=== PATIENT | male | born 1980 ===

== ENCOUNTER 2020-01-06 14:42 | Observation (INO) | payer SELFPAY ==
[2020-01-06] MEDS ORDERED: Sodium Chloride 0.9% 10 ML SDV IV PRN ×2 (14:46→17:33)
[2020-01-06] MEDS ORDERED: Sodium Chloride 0.9% 10 ML Syringe FLUSH PRN (14:46)
[2020-01-06] MEDS ORDERED: Lactated Ringers 1,000 ML IV ONE (14:46)
[2020-01-06] MEDS ORDERED: Sodium Chloride 0.9% 2.5 ML Syringe FLUSH PRN (14:46)
--- NOTE | 2020-01-06 15:19 | EDM.PDOC ---
ED HPI GENERAL MEDICAL PROBLEM - General Chief Complaint: General Stated Complaint: SENT FROM THE CLINIC; NEEDING FLUIDS Time Seen by Provider: 01/06/20 14:45 Source of Information: Reports: Patient History Limitations: Reports: No Limitations - History of Present Illness INITIAL COMMENTS - FREE TEXT/NARRATIVE: HISTORY AND PHYSICAL: History of present illness: Patient is a 39-year-old male who presents to the emergency room from the clinic for rhabdomyolysis. Patient initially was seen at the clinic for fever of 100 F, increased thirst, increased urination, weakness and generalized bilateral lower leg pain. He states approximately a week ago he had been backpacking and hiking in the [place] and was concerned he had Lyme's disease. Last week he did have a tick bite to his left thigh but never had any associated rash or bull's-eye rash with it. Patient reports he has had a few days of loose stools, does seem to be better today. The clinic performed lab work and prophylactically started him on doxycycline. Due to elevated CPK he was referred tot he ER for admission to the floor. Patient denies any headache, change in vision, syncope or near syncope. Denies any chest pain, back pain, shortness of breath or cough. Denies any abdominal pain, nausea, vomiting, constipation or dysuria. Has not noted any blood in urine or stool. Patient has been eating and drinking appropriately. Review of systems: As per history of present illness and below otherwise all systems reviewed and negative. Past medical history: As per history of present illness and as reviewed below otherwise noncontributory. Surgical history: As per history of present illness and as reviewed below otherwise noncontributory. Social history: See social history for further information Family history: As per history of present illness and as reviewed below otherwise noncontributory. Physical exam: General: Well-developed and well-nourished 39-year-old male. Alert and oriented. Nontoxic-appearing and in no acute distress. HEENT: Atraumatic, normocephalic, pupils equal and reactive bilaterally, negative for conjunctival pallor or scleral icterus, mucous membranes moist, TMs normal bilaterally, throat clear, neck supple, nontender, trachea midline. No drooling or trismus noted. No meningeal signs. No hot potato voice noted. Lungs: Clear to auscultation, breath sounds equal bilaterally, chest nontender. Heart: S1S2, regular rate and rhythm without overt murmur Abdomen: Soft, nondistended, nontender. Negative for masses or hepatosplenomegaly. Negative for costovertebral tenderness. Pelvis: Stable nontender. Skin: Intact, warm, dry. No lesions or rashes noted. Extremities: Atraumatic, moves all extremities per self without difficulty or deficits, negative for cords or calf pain. Neurovascular unremarkable. Neuro: Awake, alert, oriented. Cranial nerves II through XII unremarkable. Cerebellum unremarkable. Motor and sensory unremarkable throughout. Exam nonfocal. Notes: The clinic performed a CBC, CMP, CPK, ESR, CRP and Lyme (send out). CPK is 3, 570 and elevated CPK. Patient is aware of the need for admission for IV fluids. Dr Chauhan was consulted on this patient and he is agreeable to keeping him for observation admission. Patient's vital signs remained stable. Diagnostics: [employer]: LR Impression: Rhabdomyolysis Dehydration Plan: Observation admission to [facility] Definitive disposition and diagnosis as appropriate pending reevaluation and review of above. Generalized Pain Score (Numeric/FACES): 3 - Related Data Allergies Allergy/AdvReac Type Severity Reaction Status Date / Time No Known Allergies Allergy Verified 01/06/20 14:50 Home Meds: Home Meds Doxycycline [Doxycycline Hyclate] 100 mg PO DAILY 01/06/20 [History] ED ROS GENERAL - Review of Systems Review Of Systems: Comprehensive ROS is negative, except as noted in HPI. ED EXAM, GENERAL - Physical Exam Exam: See Below (See dictation) Course - Vital Signs Last Recorded V/S: Last Vital Signs Temp 97.4 F 01/06/20 14:52 Pulse 89 01/06/20 16:20 Resp 15 01/06/20 16:20 BP 113/64 01/06/20 16:20 Pulse Ox 96 01/06/20 16:20 - Orders/Labs/Meds Orders: Active Orders 24 hr Category Date Time Status Admission Status [Patient Status] [ADT] Stat ADT 01/06/20 15:26 Active Sodium Chloride 0.9% [Normal Saline] Med 01/06/20 14:46 Active 10 ml IV ASDIRECTED PRN Sodium Chloride 0.9% [Saline Flush] Med 01/06/20 14:46 Active 10 ml FLUSH ASDIRECTED PRN Sodium Chloride 0.9% [Saline Flush] Med 01/06/20 14:46 Active 2.5 ml FLUSH ASDIRECTED PRN Peripheral IV Insertion Adult [OM.PC] Stat Oth 01/06/20 14:46 Ordered Medication Orders Sodium Chloride (Saline Flush) 10 ml FLUSH ASDIRECTED PRN PRN Reason: Keep Vein Open Last Admin: 01/06/20 15:10 Dose: 10 ml Sodium Chloride (Saline Flush) 2.5 ml FLUSH ASDIRECTED PRN PRN Reason: Keep Vein Open Last Admin: 01/06/20 15:10 Dose: 2.5 ml Sodium Chloride (Normal Saline) 10 ml IV ASDIRECTED PRN PRN Reason: IV Use Last Admin: 01/06/20 15:10 Dose: 10 ml Labs: Laboratory Tests 01/06/20 Range/Units 15:05 Urine Color YELLOW Urine Appearance CLEAR Urine pH 6.0 (5.0-8.0) Ur Specific [place] 1.015 (1.001-1.035) Urine Protein NEGATIVE (NEGATIVE) mg/dL Urine Glucose (UA) NEGATIVE (NEGATIVE) mg/dL Urine Ketones NEGATIVE (NEGATIVE) mg/dL Urine Occult Blood NEGATIVE (NEGATIVE) Urine Nitrite NEGATIVE (NEGATIVE) Urine Bilirubin NEGATIVE (NEGATIVE) Urine Urobilinogen 0.2 (<2.0) EU/dL Ur Leukocyte Esterase NEGATIVE (NEGATIVE) Meds: Medications Generic Name Dose Route Start Last Admin Trade Name Freq PRN Reason Stop Dose Admin Sodium Chloride 10 ml 01/06/20 14:46 01/06/20 15:10 Saline Flush FLUSH 10 ml ASDIRECTED PRN Administration Keep Vein Open Sodium Chloride 2.5 ml 01/06/20 14:46 01/06/20 15:10 Saline Flush FLUSH 2.5 ml ASDIRECTED PRN Administration Keep Vein Open Sodium Chloride 10 ml 01/06/20 14:46 01/06/20 15:10 Normal Saline IV 10 ml ASDIRECTED PRN Administration IV Use Discontinued Medications Generic Name Dose Route Start Last Admin Trade Name Freq PRN Reason Stop Dose Admin Lactated Ringer's 1,000 mls @ 1,000 mls/hr 01/06/20 14:46 01/06/20 15:08 Ringers, Lactated IV 01/06/20 15:45 1,000 mls/hr .BOLUS ONE Administration Departure - Departure Time of Disposition: 16:44 Disposition: Refer to Observation Clinical Impression: Rhabdomyolysis Qualifiers: Rhabdomyolysis type: non-traumatic Qualified Code(s): M62.82 - Rhabdomyolysis - Discharge Information Sepsis Event Note - Focused Exam Vital Signs: Vital Signs Temp Pulse Resp BP Pulse Ox 01/06/20 14:52 97.4 F 108 H 15 125/74 97 Date Exam was Performed: 01/06/20 Time Exam was Performed: 16:40 - My Orders Last 24 Hours: My Active Orders 01/06/20 15:26 Admission Status [Patient Status] [ADT] Stat - Assessment/Plan Last 24 Hours: My Active Orders 01/06/20 15:26 Admission Status [Patient Status] [ADT] Stat
[2020-01-06] MEDS ORDERED: Sodium Chloride 0.9% 1,000 ML IV ONE ×3 (16:58→18:00)
[2020-01-06 17:08] LABS: HEMOGLOBIN A1C 5.9 % (4.5-6.2)
--- NOTE | 2020-01-06 17:10 | PCM.HP.2 ---
H&P History of Present Illness - General Date of Service: 01/06/20 Admit Problem/Dx: Admission Diagnosis/Problem Admission Diagnosis/Problem Rhabdomyolysis Source of Information: Patient History Limitations: Reports: No Limitations - History of Present Illness Initial Comments - Free Text/Narative: 39 old male with no significant past medical history presenting today for increasing muscle aches and pains, fever, chills with polyuria/polydipsia and increased urination x3 days. 10 days prior patient was hiking in [facility] x2 days, mention on the third day working outside in [place]; had developed a sunburn. Of note patient also endorses a tick bite 10 days prior just below his left nipple. Cannot recall exact description of tick but was confident it was a tick. Patient removed tick but is not 100% sure about how long the tick was attached to his body or whether he was engorged or not. Throughout this week patient noticed feeling fatigued with increasing malaise and myalgias; fevers and chills and increasing thirst with polyuria. Denies any excess use of alcohol, no tobacco use and or illicit drugs. Patient believes that this was due to the tick bite itself. Patient was seen in the outpatient clinic this afternoon for above-mentioned complaints; elevated CPK and see reactive protein; patient was advised to proceed to ED. ED course: With above-mentioned labs patient was initiated on IV fluids for rehydration; patient endorsed feeling better but did have one loose bowel movement in the ED. Denies any chest pain, shortness of breath, coughing, sneezing, wheezing. Throughout this time has never had any episodes of hematuria but also endorses drinking gallons of fluid throughout the day. Generalized Pain Score (Numeric/FACES): 3 - Related Data Allergies/Adverse Reactions: Allergies Allergy/AdvReac Type Severity Reaction Status Date / Time No Known Allergies Allergy Verified 01/06/20 17:36 Home Medications: Home Meds Doxycycline [Doxycycline Hyclate] 100 mg PO DAILY 01/06/20 [History] Past Medical History - Past Health History Medical/Surgical History: Denies Medical/Surgical History HEENT History: Reports: None Cardiovascular History: Reports: None Respiratory History: Reports: None Gastrointestinal History: Reports: None Genitourinary History: Reports: None Musculoskeletal History: Reports: None Neurological History: Reports: None Psychiatric History: Reports: None Endocrine/Metabolic History: Reports: None Hematologic History: Reports: None Immunologic History: Reports: None Oncologic (Cancer) History: Reports: None Dermatologic History: Reports: None - Infectious Disease History Infectious Disease History: Reports: None - Past Surgical History Head Surgeries/Procedures: Reports: None Social & Family History - Family History Family Medical History: Noncontributory - Tobacco Use Smoking Status *Q: Former Smoker Used Tobacco, but Quit: Yes Month/Year Tobacco Last Used: 2010 Second Hand Smoke Exposure: No - Caffeine Use Caffeine Use: Reports: Coffee, Tea Caffeine Use Comment: Drink daily - Alcohol Use Days Per Week of Alcohol Use: 1 Number of Drinks Per Day: 0 Total Drinks Per Week: 0 Date of Last Drink: 12/23/19 Time of Last Drink: 19:00 - Recreational Drug Use Recreational Drug Use: No H&P Review of Systems - Review of Systems: Review Of Systems: See Below General: Reports: Fever, Chills, Malaise, Fatigue HEENT: Reports: No Symptoms Pulmonary: Reports: No Symptoms Cardiovascular: Reports: No Symptoms Gastrointestinal: Reports: No Symptoms, Diarrhea. Denies: Constipation Genitourinary: Reports: Frequency. Denies: Burning, Pain Musculoskeletal: Reports: Leg Pain, Muscle Pain Skin: Reports: No Symptoms Psychiatric: Denies: Confusion, Depression Neurological: Reports: Headache. Denies: Confusion, Dizziness Exam - Exam Exam: See Below - Vital Signs Vital Signs: Last Vital Signs Temp 97.4 F 01/06/20 14:52 Pulse 89 01/06/20 16:20 Resp 15 01/06/20 16:20 BP 113/64 01/06/20 16:20 Pulse Ox 96 01/06/20 16:20 Weight: 87.226 kg - Exam Quality Assessment: No: Supplemental Oxygen General: Alert, Oriented, Cooperative HEENT: EOMI, Mucosa Moist & [place], TMs Clear Neck: Supple, Trachea Midline Lungs: Clear to Auscultation, Normal Respiratory Effort Cardiovascular: Regular Rate, Regular Rhythm GI/Abdominal Exam: Soft, Non-Tender Back Exam: Normal Inspection, Full Range of Motion Extremities: Normal Inspection, Normal Range of Motion, Leg Pain (b/l lower extremity tenderness; negative deneen sign ) Skin: Warm, Dry, Intact, Other (1 mm area of erythema below left nipple ) Neurological: Cranial Nerves Intact Neuro Extensive - Mental Status: Oriented x3, Normal Mood/Affect, Normal Cognition Neuro Extensive - Motor, Sensory, Reflexes: CN II-XII Intact Psychiatric: Alert, Normal Affect, Normal Mood - Patient Data Lab Results Last 24 hrs: Laboratory Results - last 24 hr 01/06/20 Range/Units 15:05 Urine Color YELLOW Urine Appearance CLEAR Urine pH 6.0 (5.0-8.0) Ur Specific [place] 1.015 (1.001-1.035) Urine Protein NEGATIVE (NEGATIVE) mg/dL Urine Glucose (UA) NEGATIVE (NEGATIVE) mg/dL Urine Ketones NEGATIVE (NEGATIVE) mg/dL Urine Occult Blood NEGATIVE (NEGATIVE) Urine Nitrite NEGATIVE (NEGATIVE) Urine Bilirubin NEGATIVE (NEGATIVE) Urine Urobilinogen 0.2 (<2.0) EU/dL Ur Leukocyte Esterase NEGATIVE (NEGATIVE) Result Diagrams: 01/06/20 14:50 Sepsis Event Note - Evaluation Sepsis Screening Result: No Definite Risk - Focused Exam Vital Signs: Vital Signs Temp Pulse Resp BP Pulse Ox 01/06/20 16:20 89 15 113/64 96 01/06/20 15:46 90 16 110/61 94 L 01/06/20 14:52 97.4 F 108 H 15 125/74 97 Date Exam was Performed: 01/06/20 Time Exam was Performed: 17:40 Problem List Initiated/Reviewed/Updated: Yes Orders Last 24hrs: Active Orders 24 hr Category Date Time Status Admission Status [Patient Status] [ADT] Stat ADT 01/06/20 15:26 Active Activity as Tolerated [RC] .Routine Care 01/06/20 16:59 Ordered BASIC METABOLIC PANEL,BMP [CHEM] Timed Lab 01/06/20 18:00 Ordered CBC WITH AUTO DIFF [HEME] AM Lab 01/07/20 05:11 Ordered CBC WITH AUTO DIFF [HEME] AM Lab 01/08/20 05:11 Ordered CBC WITH AUTO DIFF [HEME] AM Lab 01/09/20 05:11 Ordered COMPREHENSIVE METABOLIC PN,CMP [CHEM] AM Lab 01/07/20 05:11 Ordered COMPREHENSIVE METABOLIC PN,CMP [CHEM] AM Lab 01/08/20 05:11 Ordered COMPREHENSIVE METABOLIC PN,CMP [CHEM] AM Lab 01/09/20 05:11 Ordered CREATINE KINASE,CK [CHEM] AM Lab 01/07/20 05:11 Ordered CREATINE KINASE,CK [CHEM] AM Lab 01/08/20 05:11 Ordered CREATINE KINASE,CK [CHEM] AM Lab 01/09/20 05:11 Ordered DRUG SCREEN, URINE [URCHEM] Stat Lab 01/06/20 14:58 Received GLYCOSYLATED HEMOGLOBIN,HGBA1C [CHEM] Routine Lab 01/06/20 14:50 Received Omeprazole Med 01/06/20 17:00 Ordered 20 mg PO BIDAC Sodium Chloride 0.9% [Normal Saline] Med 01/06/20 14:46 Active 10 ml IV ASDIRECTED PRN Sodium Chloride 0.9% [Normal Saline] 1,000 ml Med 01/06/20 16:58 Ordered IV STAT Sodium Chloride 0.9% [Normal Saline] 1,000 ml Med 01/06/20 16:58 Ordered IV STAT Sodium Chloride 0.9% [Saline Flush] Med 01/06/20 14:46 Active 10 ml FLUSH ASDIRECTED PRN Sodium Chloride 0.9% [Saline Flush] Med 01/06/20 14:46 Active 2.5 ml FLUSH ASDIRECTED PRN Peripheral IV Insertion Adult [OM.PC] Stat Oth 01/06/20 14:46 Ordered Code Status [Resuscitation Status] Routine Resus Stat 01/06/20 16:53 Ordered Medication Orders Sodium Chloride (Normal Saline) 1,000 mls @ 999 mls/hr IV STAT ONE Stop: 01/06/20 17:58 Sodium Chloride (Normal Saline) 1,000 mls @ 200 mls/hr IV STAT ONE Stop: 01/06/20 21:57 Omeprazole (Omeprazole) 20 mg PO BIDAC ADRIANNA Sodium Chloride (Saline Flush) 10 ml FLUSH ASDIRECTED PRN PRN Reason: Keep Vein Open Last Admin: 01/06/20 15:10 Dose: 10 ml Sodium Chloride (Saline Flush) 2.5 ml FLUSH ASDIRECTED PRN PRN Reason: Keep Vein Open Last Admin: 01/06/20 15:10 Dose: 2.5 ml Sodium Chloride (Normal Saline) 10 ml IV ASDIRECTED PRN PRN Reason: IV Use Last Admin: 01/06/20 15:10 Dose: 10 ml Assessment/Plan Comment:: Assessment: 1. Rhabdomyolysis w. elevated CPK 2. Dehydration in setting for heat exhaustion 3. Tick bite 4. Hyponatremia 5. Transaminitis 6. no PMH Plan Admit to observation. Full code. GI prophylaxis: omeprazole 20 bid. DVT prophylaxis: heparin 5000 subq 1. Rehydrate with fluids as clinical picture is more suggestive of Rhabdomyolysis in the setting of heat exhaustion/exertion; will continue at 1.5x maintenance; replete electrolytes as needed. Continue to monitor hydration status and kidney function 2. Hyponatremia: mild headache but no focal deficit and or ataxia; continue to monitor w. repeat BMP tonight; recheck labs in AM 3. Tick bite: no other rash except site of bite; pt. already took 100 mg of Doxycycline as prescribed in outpatient setting. Lyme panel already sent; will consider other tick-borne conditions (e.g: [place]/ RMSF) if clinical picture or corresponding rashes develop; no classical target rash appreciated on physical examination today. 4. Transaminitis: recheck Hepatic panel in AM; if not responding to fluids will consider hep panel; liver US etc; most likely due to dehydration; continue to monitor. 5. Polyuria/polyuria: A1c WNl, utox negative, endorses drinking "gallons of water"; continue to monitor.
[2020-01-06 17:19] LABS: BLOOD UREA NITROGEN,BUN 13 mg/dL (7.0-18.0); CHLORIDE,CL 91 mmol/L (98-107); GLUCOSE RANDOM 117 mg/dL (74-106); POTASSIUM,K 4.2 mmol/L (3.5-5.1); SODIUM,NA 124 mmol/L (136-148)
[2020-01-06] MEDS: Omeprazole 20 MG Cap.CR PO SCH (17:32)
[2020-01-06] MEDS ORDERED: Sodium Chloride 0.9% 1,000 ML IV SCH (17:45)
[2020-01-06] MEDS: Heparin Sodium 5,000 Units/ML Vial SUBCUT SCH ×2 (17:52→20:11)
[2020-01-06] MEDS ORDERED: Acetaminophen 325 MG Tab PO ONE (19:08)
[2020-01-06 21:23] LABS: BLOOD UREA NITROGEN,BUN 13 mg/dL (7.0-18.0); CARBON DIOXIDE,CO2 27.3 mmol/L (21.0-32.0); CHLORIDE,CL 100 mmol/L (98-107); GLUCOSE RANDOM 116 mg/dL (74-106); POTASSIUM,K 4.2 mmol/L (3.5-5.1); SODIUM,NA 136 mmol/L (136-148)
[2020-01-06] MEDS: Sodium Chloride 0.9% 1,000 ML IV SCH (22:52)
--- NOTE | 2020-01-06 23:31 | CR ---
INDICATION: Fever TECHNIQUE: Chest 1 view COMPARISON: None FINDINGS: Cardiovascular and mediastinum: Heart size and vasculature are normal in caliber and appearance. Lungs and pleural spaces: No pleural effusion or pneumothorax. Minimal linear atelectasis left lung base. Bones and soft tissues: No significant findings. IMPRESSION: Minimal linear atelectasis left lung base. Dictated by Cain Borjas MD @ Jan 06 2020 11:29PM Signed by Dr. Cain Borjas @ Jan 06 2020 11:30PM
[2020-01-07] MEDS ORDERED: Piperacillin/Tazobactam 4.5 GM in Sodium Chloride 0.9% 100 ML IV ONE ×2 (06:00)
[2020-01-07 06:43] LABS: BLOOD UREA NITROGEN,BUN 12 mg/dL (7.0-18.0); CARBON DIOXIDE,CO2 25.5 mmol/L (21.0-32.0); CHLORIDE,CL 102 mmol/L (98-107); GLUCOSE RANDOM 106 mg/dL (74-106); POTASSIUM,K 4.3 mmol/L (3.5-5.1); SODIUM,NA 136 mmol/L (136-148)
[2020-01-07] MEDS: Omeprazole 20 MG Cap.CR PO SCH ×2 (08:04→16:43)
[2020-01-07] MEDS ORDERED: Acetaminophen 325 MG Tab PO ONE ×2 (08:06→22:20)
[2020-01-07] MEDS: Heparin Sodium 5,000 Units/ML Vial SUBCUT SCH ×2 (08:09→22:13)
[2020-01-07] MEDS: Doxycycline 100 MG Cap PO SCH ×2 (11:39→21:54)
--- NOTE | 2020-01-07 12:48 | PCM.PN ---
<Gricelda Wayne - Last Filed: 01/07/20 12:42> - General Info Date of Service: 01/07/20 - Review of Systems General: Reports: Fever, Chills HEENT: Reports: No Symptoms Pulmonary: Reports: No Symptoms Cardiovascular: Reports: No Symptoms Gastrointestinal: Reports: No Symptoms Genitourinary: Reports: No Symptoms Musculoskeletal: Reports: No Symptoms. Denies: Neck Pain Skin: Reports: No Symptoms. Denies: Pruritis, Rash Neurological: Reports: Headache. Denies: Confusion, Dizziness, Numbness Psychiatric: Reports: No Symptoms - Patient Data Vitals - Most Recent: Last Vital Signs Temp 101.1 F H 01/07/20 08:17 Pulse 94 01/07/20 08:00 Resp 18 01/07/20 08:00 BP 114/67 01/07/20 08:00 Pulse Ox 96 01/07/20 08:00 Weight - Most Recent: 87.226 kg I&O - Last 24 Hours: Intake & Output 01/06/20 01/07/20 01/07/20 22:59 06:59 14:59 Intake Total 905 Balance 905 Lab Results Last 24 Hours: Laboratory Results - last 24 hr 01/06/20 01/06/20 01/06/20 Range/Units 14:50 14:50 14:50 WBC (4.0-11.0) K/uL RBC (4.50-5.90) M/uL Hgb (13.0-17.0) g/dL Hct (38.0-50.0) % MCV (80.0-98.0) fL MCH (27.0-32.0) pg MCHC (31.0-37.0) g/dL RDW Std Deviation (28.0-62.0) fl RDW Coeff of Uma (11.0-15.0) % Plt Count (150-400) K/uL MPV (7.40-12.00) fL Add Manual Diff Neutrophils % (Manual) (48.0-80.0) % Band Neutrophils % % Lymphocytes % (Manual) (16.0-40.0) % Monocytes % (Manual) (0.0-15.0) % Nucleated RBC % /100WBC Absolute Seg Neuts (1.4-5.7) Band Neutrophils # Lymphocytes # (Manual) (0.6-2.4) Monocytes # (Manual) (0.0-0.8) Nucleated RBCs # K/uL Lactate (0.20-2.00) mmol/L Sodium 124 L (136-148) mmol/L Potassium 4.2 (3.5-5.1) mmol/L Chloride 91 L (98-107) mmol/L Carbon Dioxide 25.0 (21.0-32.0) mmol/L BUN 13 (7.0-18.0) mg/dL Creatinine 1.1 (0.8-1.3) mg/dL Est Cr Clr Drug Dosing 85.50 mL/min Estimated GFR (MDRD) > 60.0 ml/min Glucose 117 H (74-106) mg/dL Hemoglobin A1c 5.9 (4.5-6.2) % Calcium 8.0 L (8.5-10.1) mg/dL Magnesium 1.8 (1.8-2.4) mg/dL Total Bilirubin (0.2-1.0) mg/dL AST (15-37) IU/L ALT (14-63) IU/L Alkaline Phosphatase (46-116) U/L Creatine Kinase (26-308) U/L Total Protein (6.4-8.2) g/dL Albumin (3.4-5.0) g/dL Globulin (2.6-4.0) g/dL Albumin/Globulin Ratio (0.9-1.6) Urine Color Urine Appearance Urine pH (5.0-8.0) Ur Specific [place] (1.001-1.035) Urine Protein (NEGATIVE) mg/dL Urine Glucose (UA) (NEGATIVE) mg/dL Urine Ketones (NEGATIVE) mg/dL Urine Occult Blood (NEGATIVE) Urine Nitrite (NEGATIVE) Urine Bilirubin (NEGATIVE) Urine Urobilinogen (<2.0) EU/dL Ur Leukocyte Esterase (NEGATIVE) Urine Opiates Screen (NEGATIVE) Ur Oxycodone Screen (NEGATIVE) Urine Methadone Screen (NEGATIVE) Ur Barbiturates Screen (NEGATIVE) Ur Phencyclidine Scrn (NEGATIVE) Ur Amphetamine Screen (NEGATIVE) U Methamphetamines Scrn (NEGATIVE) U Benzodiazepines Scrn (NEGATIVE) U Cocaine Metab Screen (NEGATIVE) U Marijuana (THC) Screen (NEGATIVE) SARS-CoV-2 RNA (RT-PCR) (NEGATIVE) 01/06/20 01/06/20 01/06/20 Range/Units 14:58 15:05 19:45 WBC (4.0-11.0) K/uL RBC (4.50-5.90) M/uL Hgb (13.0-17.0) g/dL Hct (38.0-50.0) % MCV (80.0-98.0) fL MCH (27.0-32.0) pg MCHC (31.0-37.0) g/dL RDW Std Deviation (28.0-62.0) fl RDW Coeff of Uma (11.0-15.0) % Plt Count (150-400) K/uL MPV (7.40-12.00) fL Add Manual Diff Neutrophils % (Manual) (48.0-80.0) % Band Neutrophils % % Lymphocytes % (Manual) (16.0-40.0) % Monocytes % (Manual) (0.0-15.0) % Nucleated RBC % /100WBC Absolute Seg Neuts (1.4-5.7) Band Neutrophils # Lymphocytes # (Manual) (0.6-2.4) Monocytes # (Manual) (0.0-0.8) Nucleated RBCs # K/uL Lactate (0.20-2.00) mmol/L Sodium (136-148) mmol/L Potassium (3.5-5.1) mmol/L Chloride (98-107) mmol/L Carbon Dioxide (21.0-32.0) mmol/L BUN (7.0-18.0) mg/dL Creatinine (0.8-1.3) mg/dL Est Cr Clr Drug Dosing mL/min Estimated GFR (MDRD) ml/min Glucose (74-106) mg/dL Hemoglobin A1c (4.5-6.2) % Calcium (8.5-10.1) mg/dL Magnesium (1.8-2.4) mg/dL Total Bilirubin (0.2-1.0) mg/dL AST (15-37) IU/L ALT (14-63) IU/L Alkaline Phosphatase (46-116) U/L Creatine Kinase (26-308) U/L Total Protein (6.4-8.2) g/dL Albumin (3.4-5.0) g/dL Globulin (2.6-4.0) g/dL Albumin/Globulin Ratio (0.9-1.6) Urine Color YELLOW Urine Appearance CLEAR Urine pH 6.0 (5.0-8.0) Ur Specific [place] 1.015 (1.001-1.035) Urine Protein NEGATIVE (NEGATIVE) mg/dL Urine Glucose (UA) NEGATIVE (NEGATIVE) mg/dL Urine Ketones NEGATIVE (NEGATIVE) mg/dL Urine Occult Blood NEGATIVE (NEGATIVE) Urine Nitrite NEGATIVE (NEGATIVE) Urine Bilirubin NEGATIVE (NEGATIVE) Urine Urobilinogen 0.2 (<2.0) EU/dL Ur Leukocyte Esterase NEGATIVE (NEGATIVE) Urine Opiates Screen NEGATIVE (NEGATIVE) Ur Oxycodone Screen NEGATIVE (NEGATIVE) Urine Methadone Screen NEGATIVE (NEGATIVE) Ur Barbiturates Screen NEGATIVE (NEGATIVE) Ur Phencyclidine Scrn NEGATIVE (NEGATIVE) Ur Amphetamine Screen NEGATIVE (NEGATIVE) U Methamphetamines Scrn NEGATIVE (NEGATIVE) U Benzodiazepines Scrn NEGATIVE (NEGATIVE) U Cocaine Metab Screen NEGATIVE (NEGATIVE) U Marijuana (THC) Screen NEGATIVE (NEGATIVE) SARS-CoV-2 RNA (RT-PCR) NEGATIVE (NEGATIVE) 01/06/20 01/06/20 01/07/20 Range/Units 21:03 22:45 06:00 WBC 1.61 L (4.0-11.0) K/uL RBC 4.87 (4.50-5.90) M/uL Hgb 14.6 (13.0-17.0) g/dL Hct 43.2 (38.0-50.0) % MCV 88.7 (80.0-98.0) fL MCH 30.0 (27.0-32.0) pg MCHC 33.8 (31.0-37.0) g/dL RDW Std Deviation 44.4 (28.0-62.0) fl RDW Coeff of Uma 14 (11.0-15.0) % Plt Count 84 L (150-400) K/uL MPV 10.80 (7.40-12.00) fL Add Manual Diff YES Neutrophils % (Manual) 48 (48.0-80.0) % Band Neutrophils % 12 % Lymphocytes % (Manual) 36 (16.0-40.0) % Monocytes % (Manual) 4 (0.0-15.0) % Nucleated RBC % 0.0 /100WBC Absolute Seg Neuts 0.8 L (1.4-5.7) Band Neutrophils # 0.2 Lymphocytes # (Manual) 0.6 (0.6-2.4) Monocytes # (Manual) 0.1 (0.0-0.8) Nucleated RBCs # 0 K/uL Lactate 0.5 (0.20-2.00) mmol/L Sodium 136 (136-148) mmol/L Potassium 4.2 (3.5-5.1) mmol/L Chloride 100 (98-107) mmol/L Carbon Dioxide 27.3 (21.0-32.0) mmol/L BUN 13 (7.0-18.0) mg/dL Creatinine 1.1 (0.8-1.3) mg/dL Est Cr Clr Drug Dosing 85.50 mL/min Estimated GFR (MDRD) > 60.0 ml/min Glucose 116 H (74-106) mg/dL Hemoglobin A1c (4.5-6.2) % Calcium 7.7 L (8.5-10.1) mg/dL Magnesium (1.8-2.4) mg/dL Total Bilirubin (0.2-1.0) mg/dL AST (15-37) IU/L ALT (14-63) IU/L Alkaline Phosphatase (46-116) U/L Creatine Kinase (26-308) U/L Total Protein (6.4-8.2) g/dL Albumin (3.4-5.0) g/dL Globulin (2.6-4.0) g/dL Albumin/Globulin Ratio (0.9-1.6) Urine Color Urine Appearance Urine pH (5.0-8.0) Ur Specific [place] (1.001-1.035) Urine Protein (NEGATIVE) mg/dL Urine Glucose (UA) (NEGATIVE) mg/dL Urine Ketones (NEGATIVE) mg/dL Urine Occult Blood (NEGATIVE) Urine Nitrite (NEGATIVE) Urine Bilirubin (NEGATIVE) Urine Urobilinogen (<2.0) EU/dL Ur Leukocyte Esterase (NEGATIVE) Urine Opiates Screen (NEGATIVE) Ur Oxycodone Screen (NEGATIVE) Urine Methadone Screen (NEGATIVE) Ur Barbiturates Screen (NEGATIVE) Ur Phencyclidine Scrn (NEGATIVE) Ur Amphetamine Screen (NEGATIVE) U Methamphetamines Scrn (NEGATIVE) U Benzodiazepines Scrn (NEGATIVE) U Cocaine Metab Screen (NEGATIVE) U Marijuana (THC) Screen (NEGATIVE) SARS-CoV-2 RNA (RT-PCR) (NEGATIVE) 01/07/20 Range/Units 06:00 WBC (4.0-11.0) K/uL RBC (4.50-5.90) M/uL Hgb (13.0-17.0) g/dL Hct (38.0-50.0) % MCV (80.0-98.0) fL MCH (27.0-32.0) pg MCHC (31.0-37.0) g/dL RDW Std Deviation (28.0-62.0) fl RDW Coeff of Uma (11.0-15.0) % Plt Count (150-400) K/uL MPV (7.40-12.00) fL Add Manual Diff Neutrophils % (Manual) (48.0-80.0) % Band Neutrophils % % Lymphocytes % (Manual) (16.0-40.0) % Monocytes % (Manual) (0.0-15.0) % Nucleated RBC % /100WBC Absolute Seg Neuts (1.4-5.7) Band Neutrophils # Lymphocytes # (Manual) (0.6-2.4) Monocytes # (Manual) (0.0-0.8) Nucleated RBCs # K/uL Lactate (0.20-2.00) mmol/L Sodium 136 (136-148) mmol/L Potassium 4.3 (3.5-5.1) mmol/L Chloride 102 (98-107) mmol/L Carbon Dioxide 25.5 (21.0-32.0) mmol/L BUN 12 (7.0-18.0) mg/dL Creatinine 1.1 (0.8-1.3) mg/dL Est Cr Clr Drug Dosing 85.50 mL/min Estimated GFR (MDRD) > 60.0 ml/min Glucose 106 (74-106) mg/dL Hemoglobin A1c (4.5-6.2) % Calcium 7.6 L (8.5-10.1) mg/dL Magnesium (1.8-2.4) mg/dL Total Bilirubin 0.3 (0.2-1.0) mg/dL AST 141 H (15-37) IU/L ALT 132 H (14-63) IU/L Alkaline Phosphatase 53 (46-116) U/L Creatine Kinase 2566 H (26-308) U/L Total Protein 6.3 L (6.4-8.2) g/dL Albumin 3.2 L (3.4-5.0) g/dL Globulin 3.1 (2.6-4.0) g/dL Albumin/Globulin Ratio 1.0 (0.9-1.6) Urine Color Urine Appearance Urine pH (5.0-8.0) Ur Specific [place] (1.001-1.035) Urine Protein (NEGATIVE) mg/dL Urine Glucose (UA) (NEGATIVE) mg/dL Urine Ketones (NEGATIVE) mg/dL Urine Occult Blood (NEGATIVE) Urine Nitrite (NEGATIVE) Urine Bilirubin (NEGATIVE) Urine Urobilinogen (<2.0) EU/dL Ur Leukocyte Esterase (NEGATIVE) Urine Opiates Screen (NEGATIVE) Ur Oxycodone Screen (NEGATIVE) Urine Methadone Screen (NEGATIVE) Ur Barbiturates Screen (NEGATIVE) Ur Phencyclidine Scrn (NEGATIVE) Ur Amphetamine Screen (NEGATIVE) U Methamphetamines Scrn (NEGATIVE) U Benzodiazepines Scrn (NEGATIVE) U Cocaine Metab Screen (NEGATIVE) U Marijuana (THC) Screen (NEGATIVE) SARS-CoV-2 RNA (RT-PCR) (NEGATIVE) Med Orders - Current: Current Medications Doxycycline Hyclate (Vibramycin) 100 mg PO BID [facility] Last Admin: 01/07/20 11:39 Dose: 100 mg Heparin Sodium (Porcine) (Heparin Sodium) 5,000 units SUBCUT BID [facility] Last Admin: 01/07/20 08:09 Dose: Not Given Sodium Chloride (Normal Saline) 1,000 mls @ 125 mls/hr IV ASDIRECTED [facility] Last Admin: 01/06/20 22:52 Dose: 125 mls/hr Piperacillin Sod/Tazobactam (Sod 3.375 gm/ Sodium Chloride) 50 mls @ 100 mls/ hr IV Q8H [facility] Vancomycin HCl 1.25 gm/ Sodium (Chloride) 250 mls @ 166.667 mls/hr IV Q8H [facility] Last Admin: 01/07/20 12:38 Dose: 166.667 mls/hr Omeprazole (Omeprazole) 20 mg PO BIDAC [facility] Last Admin: 01/07/20 08:04 Dose: 20 mg Sodium Chloride (Saline Flush) 10 ml FLUSH ASDIRECTED PRN PRN Reason: Keep Vein Open Last Admin: 01/06/20 15:10 Dose: 10 ml Sodium Chloride (Saline Flush) 2.5 ml FLUSH ASDIRECTED PRN PRN Reason: Keep Vein Open Last Admin: 01/06/20 15:10 Dose: 2.5 ml Vancomycin HCl (Pharmacy To Dose - Vancomycin) 1 dose .XX ASDIRECTED [facility] Discontinued Medications Acetaminophen (Tylenol) 325 mg PO NOW ONE Stop: 01/06/20 19:09 Last Admin: 01/06/20 20:09 Dose: 325 mg Acetaminophen (Tylenol) 650 mg PO NOW ONE Stop: 01/07/20 08:07 Last Admin: 01/07/20 08:17 Dose: 650 mg Lactated Ringer's (Ringers, Lactated) 1,000 mls @ 1,000 mls/hr IV .BOLUS ONE Stop: 01/06/20 15:45 Last Admin: 01/06/20 15:08 Dose: 1,000 mls/hr Sodium Chloride (Normal Saline) 1,000 mls @ 999 mls/hr IV STAT ONE Stop: 01/06/20 17:58 Last Admin: 01/06/20 17:11 Dose: 999 mls/hr Sodium Chloride (Normal Saline) 1,000 mls @ 200 mls/hr IV STAT ONE Stop: 01/06/20 22:59 Sodium Chloride (Normal Saline) 1,000 mls @ 200 mls/hr IV CONTINUOUS ONE Stop: 01/06/20 22:59 Sodium Chloride (Normal Saline) 1,000 mls @ 200 mls/hr IV .Q5H [facility] Last Admin: 01/06/20 18:19 Dose: 200 mls/hr Piperacillin Sod/Tazobactam (Sod 4.5 gm/ Sodium Chloride) 100 mls @ 200 mls/hr IV ONETIME ONE Stop: 01/07/20 06:29 Last Admin: 01/07/20 07:38 Dose: 200 mls/hr Sodium Chloride (Normal Saline) 10 ml IV ASDIRECTED PRN PRN Reason: IV Use Last Admin: 01/06/20 15:10 Dose: 10 ml - Exam Quality Assessment: No: Supplemental Oxygen General: Alert, Oriented, Cooperative, No Acute Distress HEENT: Pupils Equal, Pupils Reactive, EOMI Neck: Supple Lungs: Clear to Auscultation, Normal Respiratory Effort Cardiovascular: Regular Rate, Regular Rhythm GI/Abdominal Exam: Soft, Non-Tender Extremities: Normal Inspection, Non-Tender, No Pedal Edema, Normal Capillary Refill Skin: Warm, Dry, Intact Wound/Incisions: Healing Well Neurological: No New Focal Deficit, Normal Speech, Strength Equal Bilateral, Sensation Intact, Other (no obvious meningeal signs; mentating well; no neck tenderness/stiffness. negative kernigs/brudzinski. ) Psy/Mental Status: Alert, Normal Affect, Normal Mood Sepsis Event Note - Evaluation Sepsis Screening Result: Sepsis Risk - Focused Exam Vital Signs: Vital Signs Temp Temp Temp Pulse Resp BP Pulse Ox 01/07/20 08:17 101.1 F H 01/07/20 08:00 101.1 F H 94 18 114/67 96 01/07/20 04:30 102.1 F H 96 18 121/68 Date Exam was Performed: 01/07/20 Time Exam was Performed: 12:42 - Problem List Review Problem List Initiated/Reviewed/Updated: Yes - My Orders Last 24 Hours: My Active Orders 01/06/20 16:53 Code Status [Resuscitation Status] Routine 01/06/20 16:59 Activity as Tolerated [RC] .Routine 01/06/20 17:00 Omeprazole 20 mg PO BIDAC 01/06/20 17:45 Heparin Sodium 5,000 units SUBCUT BID 01/06/20 Dinner Regular Diet [DIET] 01/07/20 11:28 INFLUENZA A+B AG SCREEN [RM] Stat Isolation [COMM] Routine 01/07/20 11:30 Doxycycline [Vibramycin] 100 mg PO BID 01/08/20 05:11 CBC WITH AUTO DIFF [HEME] AM COMPREHENSIVE METABOLIC PN,CMP [CHEM] AM CREATINE KINASE,CK [CHEM] AM 01/09/20 05:11 CBC WITH AUTO DIFF [HEME] AM COMPREHENSIVE METABOLIC PN,CMP [CHEM] AM CREATINE KINASE,CK [CHEM] AM - Plan Plan:: Assessment: 1. Rhabdomyolysis w. elevated CPK 2. Neutropenia w. fever 3. Dehydration in setting of heat exhaustion 4. Tick bite 5. Hyponatremia:resolved 6. Transaminitis :improving 7. no PMH Plan Admit to observation. Full code. GI prophylaxis: omeprazole 20 bid. DVT prophylaxis: heparin 5000 subq 1. Rehydrate with fluids as clinical picture is more suggestive of Rhabdomyolysis in the setting of heat exhaustion/exertion; will continue at 1.5x maintenance; replete electrolytes as needed. Continue to monitor hydration status and kidney function Neutropenia with Fever: overnight pt. was initated on Zosyn+vancomycin; still spiking fevers in AM but endorses muscle aches and pain improving. Will check for Influenza but no obvious signs of infections appreciated on History and physical. No new rashes appreciated today; site of tick bit , 1 mm erythema ; noted and unchanged. Continue to monitor ; recheck CBC and lactate this afternoon. 2. Hyponatremia: resolved 3. Tick bite: no other rash except site of bite; pt. already took 100 mg of Doxycycline as prescribed in outpatient setting. Lyme panel already sent; will consider other tick-borne conditions (e.g: [place]/ RMSF) if clinical picture or corresponding rashes develop; no classical target rash appreciated on physical examination today. Will also order a RMSF and Anaplasma panel. Restart pt. on Doxycycline 100 mg BID 4. Transaminitis: recheck Hepatic panel in AM; if not responding to fluids will consider hep panel; liver US etc; most likely due to dehydration; continue to monitor. continue to monitor 5. Polyuria/polyuria: A1c WNl, utox negative, endorses drinking "gallons of water"; continue to monitor. A1c WNL <Vinnie Nix - Last Filed: 01/09/20 23:45> - Patient Data Vitals - Most Recent: Last Vital Signs Temp 36.8 C 01/08/20 11:00 Pulse 80 01/08/20 11:00 Resp 14 01/08/20 11:00 BP 113/65 01/08/20 11:00 Pulse Ox 97 01/08/20 11:00 Higinio Results Last 24 Hours: Microbiology 01/06/20 22:35 Aerobic Blood Culture - Preliminary Blood - Venous NO GROWTH AFTER 3 DAYS Anaerobic Blood Culture - Preliminary NO GROWTH AFTER 3 DAYS 01/06/20 22:45 Aerobic Blood Culture - Preliminary Blood - Venous - Lab Draw NO GROWTH AFTER 3 DAYS Anaerobic Blood Culture - Preliminary NO GROWTH AFTER 3 DAYS Med Orders - Current: Current Medications Discontinued Medications Acetaminophen (Tylenol) 325 mg PO NOW ONE Stop: 01/06/20 19:09 Last Admin: 01/06/20 20:09 Dose: 325 mg Acetaminophen (Tylenol) 650 mg PO NOW ONE Stop: 01/07/20 08:07 Last Admin: 01/07/20 08:17 Dose: 650 mg Acetaminophen (Tylenol) 650 mg PO Q4H ONE Stop: 01/07/20 22:21 Last Admin: 01/07/20 22:26 Dose: 650 mg Doxycycline Hyclate (Vibramycin) 100 mg PO BID [facility] Last Admin: 01/08/20 09:05 Dose: 100 mg Heparin Sodium (Porcine) (Heparin Sodium) 5,000 units SUBCUT BID [facility] Last Admin: 01/08/20 13:46 Dose: Not Given Lactated Ringer's (Ringers, Lactated) 1,000 mls @ 1,000 mls/hr IV .BOLUS ONE Stop: 01/06/20 15:45 Last Admin: 01/06/20 15:08 Dose: 1,000 mls/hr Sodium Chloride (Normal Saline) 1,000 mls @ 999 mls/hr IV STAT ONE Stop: 01/06/20 17:58 Last Admin: 01/06/20 17:11 Dose: 999 mls/hr Sodium Chloride (Normal Saline) 1,000 mls @ 200 mls/hr IV STAT ONE Stop: 01/06/20 22:59 Sodium Chloride (Normal Saline) 1,000 mls @ 200 mls/hr IV CONTINUOUS ONE Stop: 01/06/20 22:59 Sodium Chloride (Normal Saline) 1,000 mls @ 200 mls/hr IV .Q5H [facility] Last Admin: 01/06/20 18:19 Dose: 200 mls/hr Sodium Chloride (Normal Saline) 1,000 mls @ 125 mls/hr IV ASDIRECTED [facility] Last Admin: 01/08/20 04:38 Dose: 125 mls/hr Piperacillin Sod/Tazobactam (Sod 3.375 gm/ Sodium Chloride) 50 mls @ 100 mls/ hr IV Q8H [facility] Last Admin: 01/08/20 13:24 Dose: 100 mls/hr Vancomycin HCl 1.25 gm/ Sodium (Chloride) 250 mls @ 166.667 mls/hr IV Q8H [facility] Last Admin: 01/08/20 13:46 Dose: Not Given Piperacillin Sod/Tazobactam (Sod 4.5 gm/ Sodium Chloride) 100 mls @ 200 mls/hr IV ONETIME ONE Stop: 01/07/20 06:29 Last Admin: 01/07/20 07:38 Dose: 200 mls/hr Vancomycin HCl 1.5 gm/ Premix 300 mls @ 150 mls/hr IV Q8H [facility] Last Admin: 01/08/20 14:16 Dose: 150 mls/hr Omeprazole (Omeprazole) 20 mg PO BIDAC [facility] Last Admin: 01/08/20 16:28 Dose: 20 mg Sodium Chloride (Saline Flush) 10 ml FLUSH ASDIRECTED PRN PRN Reason: Keep Vein Open Last Admin: 01/06/20 15:10 Dose: 10 ml Sodium Chloride (Saline Flush) 2.5 ml FLUSH ASDIRECTED PRN PRN Reason: Keep Vein Open Last Admin: 01/06/20 15:10 Dose: 2.5 ml Sodium Chloride (Normal Saline) 10 ml IV ASDIRECTED PRN PRN Reason: IV Use Last Admin: 01/06/20 15:10 Dose: 10 ml Vancomycin HCl (Pharmacy To Dose - Vancomycin) 1 dose .XX ASDIRECTED [facility] - Problem List & Annotations (1) Tick bite of chest wall SNOMED Code(s): 66400824 Code(s): S20.369A - INSECT BITE (NONVENOMOUS) OF UNSP FRONT WALL OF THORAX, INIT; W57.XXXA - BIT/STUNG BY NONVENOM INSECT & OTH NONVENOM ARTHROPODS, INIT Status: Acute (2) Fever SNOMED Code(s): 274504560 Code(s): R50.9 - FEVER, UNSPECIFIED Status: Acute (3) Rhabdomyolysis SNOMED Code(s): 776551398 Code(s): M62.82 - RHABDOMYOLYSIS Status: Acute Qualifiers: Rhabdomyolysis type: non-traumatic Qualified Code(s): M62.82 - Rhabdomyolysis (4) Leucopenia SNOMED Code(s): 53154356, 886652936 Code(s): D72.819 - DECREASED WHITE BLOOD CELL COUNT, UNSPECIFIED Status: Acute (5) Thrombocytopenia SNOMED Code(s): 218182987 Code(s): D69.6 - THROMBOCYTOPENIA, UNSPECIFIED Status: Acute - Plan Plan:: I have seen and evaluated the patient and agree with the residents note unless specified in my note
[2020-01-07] MEDS: Piperacillin/Tazobactam 3.375 GM in Sodium Chloride 0.9% 50 ML IV SCH ×2 (14:20→21:55)
[2020-01-07] MEDS: Sodium Chloride 0.9% 1,000 ML IV SCH (18:37)
[2020-01-08] MEDS: Sodium Chloride 0.9% 1,000 ML IV SCH (04:38)
[2020-01-08] MEDS: Piperacillin/Tazobactam 3.375 GM in Sodium Chloride 0.9% 50 ML IV SCH ×2 (06:20→13:24)
[2020-01-08] MEDS: Omeprazole 20 MG Cap.CR PO SCH ×2 (06:30→16:28)
[2020-01-08 06:57] LABS: BLOOD UREA NITROGEN,BUN 12 mg/dL (7.0-18.0); CARBON DIOXIDE,CO2 28.8 mmol/L (21.0-32.0); CHLORIDE,CL 105 mmol/L (98-107); GLUCOSE RANDOM 100 mg/dL (74-106); SODIUM,NA 141 mmol/L (136-148)
[2020-01-08] MEDS: Doxycycline 100 MG Cap PO SCH (09:05)
[2020-01-08] MEDS: Heparin Sodium 5,000 Units/ML Vial SUBCUT SCH (13:46)
--- NOTE | 2020-01-08 14:33 | PCM.DCSUM1 ---
Discharge Summary - Discharge Data Discharge Date: 01/08/20 Discharge Disposition: Home, Self-Care 01 Condition: Stable - Referral to Home Health Primary Care Physician: Quinn Black MD - Discharge Plan Home Medications: Home Meds Doxycycline [Doxycycline Hyclate] 100 mg PO DAILY 01/06/20 [History] Patient Handouts: Rhabdomyolysis, Dehydration, Adult, [id number] Referrals: Gricelda Wayne MD [Resident] - 01/19/20 2:30 pm - Patient Data Vitals - Most Recent: Last Vital Signs Temp 36.8 C 01/08/20 11:00 Pulse 80 01/08/20 11:00 Resp 14 01/08/20 11:00 BP 113/65 01/08/20 11:00 Pulse Ox 97 01/08/20 11:00 Weight - Most Recent: 87.226 kg I&O - Last 24 hours: Intake & Output 01/07/20 01/08/20 01/08/20 22:59 06:59 14:59 Intake Total 1924 2127 350 Output Total 3081 2410 Balance -1161 -223 350 Lab Results - Last 24 hrs: Laboratory Results - last 24 hr 01/07/20 01/08/20 01/08/20 Range/Units 17:14 06:10 06:10 WBC 1.92 L 2.85 L (4.0-11.0) K/uL RBC 5.07 5.02 (4.50-5.90) M/uL Hgb 15.3 14.9 (13.0-17.0) g/dL Hct 45.1 44.8 (38.0-50.0) % MCV 89.0 89.2 (80.0-98.0) fL MCH 30.2 29.7 (27.0-32.0) pg MCHC 33.9 33.3 (31.0-37.0) g/dL RDW Std Deviation 45.1 45.4 (28.0-62.0) fl RDW Coeff of Uma 14 14 (11.0-15.0) % Plt Count 81 L 77 L (150-400) K/uL MPV 10.70 11.10 (7.40-12.00) fL Neut % (Auto) 52.6 43.5 L (48.0-80.0) % Lymph % (Auto) 41.7 H 46.3 H (16.0-40.0) % [place] % (Auto) 5.2 8.8 (0.0-15.0) % Eos % (Auto) 0.0 0.7 (0.0-7.0) % Baso % (Auto) 0.5 0.7 (0.0-1.5) % Neut # (Auto) 1.0 L 1.2 L (1.4-5.7) K/uL Lymph # (Auto) 0.8 1.3 (0.6-2.4) K/uL [place] # (Auto) 0.1 0.3 (0.0-0.8) K/uL Eos # (Auto) 0.0 0.0 (0.0-0.7) K/uL Baso # (Auto) 0.0 0.0 (0.0-0.1) K/uL Nucleated RBC % 0.0 0.0 /100WBC Nucleated RBCs # 0 0 K/uL Sodium 141 (136-148) mmol/L Potassium 4.0 (3.5-5.1) mmol/L Chloride 105 (98-107) mmol/L Carbon Dioxide 28.8 (21.0-32.0) mmol/L BUN 12 (7.0-18.0) mg/dL Creatinine 1.1 (0.8-1.3) mg/dL Est Cr Clr Drug Dosing 85.50 mL/min Estimated GFR (MDRD) > 60.0 ml/min Glucose 100 (74-106) mg/dL Calcium 7.7 L (8.5-10.1) mg/dL Total Bilirubin 0.3 (0.2-1.0) mg/dL AST 103 H (15-37) IU/L ALT 106 H (14-63) IU/L Alkaline Phosphatase 52 (46-116) U/L Creatine Kinase 1917 H (26-308) U/L Total Protein 6.0 L (6.4-8.2) g/dL Albumin 3.0 L (3.4-5.0) g/dL Globulin 3.0 (2.6-4.0) g/dL Albumin/Globulin Ratio 1.0 (0.9-1.6) Vancomycin Trough (5.0-10.0) ug/mL 01/08/20 Range/Units 12:36 WBC (4.0-11.0) K/uL RBC (4.50-5.90) M/uL Hgb (13.0-17.0) g/dL Hct (38.0-50.0) % MCV (80.0-98.0) fL MCH (27.0-32.0) pg MCHC (31.0-37.0) g/dL RDW Std Deviation (28.0-62.0) fl RDW Coeff of Uma (11.0-15.0) % Plt Count (150-400) K/uL MPV (7.40-12.00) fL Neut % (Auto) (48.0-80.0) % Lymph % (Auto) (16.0-40.0) % [place] % (Auto) (0.0-15.0) % Eos % (Auto) (0.0-7.0) % Baso % (Auto) (0.0-1.5) % Neut # (Auto) (1.4-5.7) K/uL Lymph # (Auto) (0.6-2.4) K/uL [place] # (Auto) (0.0-0.8) K/uL Eos # (Auto) (0.0-0.7) K/uL Baso # (Auto) (0.0-0.1) K/uL Nucleated RBC % /100WBC Nucleated RBCs # K/uL Sodium (136-148) mmol/L Potassium (3.5-5.1) mmol/L Chloride (98-107) mmol/L Carbon Dioxide (21.0-32.0) mmol/L BUN (7.0-18.0) mg/dL Creatinine (0.8-1.3) mg/dL Est Cr Clr Drug Dosing mL/min Estimated GFR (MDRD) ml/min Glucose (74-106) mg/dL Calcium (8.5-10.1) mg/dL Total Bilirubin (0.2-1.0) mg/dL AST (15-37) IU/L ALT (14-63) IU/L Alkaline Phosphatase (46-116) U/L Creatine Kinase (26-308) U/L Total Protein (6.4-8.2) g/dL Albumin (3.4-5.0) g/dL Globulin (2.6-4.0) g/dL Albumin/Globulin Ratio (0.9-1.6) Vancomycin Trough 3.7 L (5.0-10.0) ug/mL ROLLY Results - Last 24 hrs: Microbiology 01/06/20 22:35 Aerobic Blood Culture - Preliminary Blood - Venous NO GROWTH AFTER 1 DAY Anaerobic Blood Culture - Preliminary NO GROWTH AFTER 1 DAY 01/06/20 22:45 Aerobic Blood Culture - Preliminary Blood - Venous - Lab Draw NO GROWTH AFTER 1 DAY Anaerobic Blood Culture - Preliminary NO GROWTH AFTER 1 DAY 01/07/20 12:45 Influenza Type A Antigen Screen - Final Nasopharyngeal Swab NEGATIVE INFLUENZA A VIRUS AG REFERENCE RANGE: NEGATIVE Influenza Type B Antigen Screen - Final NEGATIVE INFLUENZA B VIRUS AG REFERENCE RANGE: NEGATIVE Med Orders - Current: Current Medications Doxycycline Hyclate (Vibramycin) 100 mg PO BID [facility] Last Admin: 01/08/20 09:05 Dose: 100 mg Sodium Chloride (Normal Saline) 1,000 mls @ 125 mls/hr IV ASDIRECTED [facility] Last Admin: 01/08/20 04:38 Dose: 125 mls/hr Piperacillin Sod/Tazobactam (Sod 3.375 gm/ Sodium Chloride) 50 mls @ 100 mls/ hr IV Q8H [facility] Last Admin: 01/08/20 13:24 Dose: 100 mls/hr Vancomycin HCl 1.5 gm/ Premix 300 mls @ 150 mls/hr IV Q8H [facility] Last Admin: 01/08/20 14:16 Dose: 150 mls/hr Omeprazole (Omeprazole) 20 mg PO BIDAC [facility] Last Admin: 01/08/20 06:30 Dose: 20 mg Sodium Chloride (Saline Flush) 10 ml FLUSH ASDIRECTED PRN PRN Reason: Keep Vein Open Last Admin: 01/06/20 15:10 Dose: 10 ml Sodium Chloride (Saline Flush) 2.5 ml FLUSH ASDIRECTED PRN PRN Reason: Keep Vein Open Last Admin: 01/06/20 15:10 Dose: 2.5 ml Vancomycin HCl (Pharmacy To Dose - Vancomycin) 1 dose .XX ASDIRECTED [facility] Discontinued Medications Acetaminophen (Tylenol) 325 mg PO NOW ONE Stop: 01/06/20 19:09 Last Admin: 01/06/20 20:09 Dose: 325 mg Acetaminophen (Tylenol) 650 mg PO NOW ONE Stop: 01/07/20 08:07 Last Admin: 01/07/20 08:17 Dose: 650 mg Acetaminophen (Tylenol) 650 mg PO Q4H ONE Stop: 01/07/20 22:21 Last Admin: 01/07/20 22:26 Dose: 650 mg Heparin Sodium (Porcine) (Heparin Sodium) 5,000 units SUBCUT BID [facility] Last Admin: 01/08/20 13:46 Dose: Not Given Lactated Ringer's (Ringers, Lactated) 1,000 mls @ 1,000 mls/hr IV .BOLUS ONE Stop: 01/06/20 15:45 Last Admin: 01/06/20 15:08 Dose: 1,000 mls/hr Sodium Chloride (Normal Saline) 1,000 mls @ 999 mls/hr IV STAT ONE Stop: 01/06/20 17:58 Last Admin: 01/06/20 17:11 Dose: 999 mls/hr Sodium Chloride (Normal Saline) 1,000 mls @ 200 mls/hr IV STAT ONE Stop: 01/06/20 22:59 Sodium Chloride (Normal Saline) 1,000 mls @ 200 mls/hr IV CONTINUOUS ONE Stop: 01/06/20 22:59 Sodium Chloride (Normal Saline) 1,000 mls @ 200 mls/hr IV .Q5H [facility] Last Admin: 01/06/20 18:19 Dose: 200 mls/hr Vancomycin HCl 1.25 gm/ Sodium (Chloride) 250 mls @ 166.667 mls/hr IV Q8H [facility] Last Admin: 01/08/20 13:46 Dose: Not Given Piperacillin Sod/Tazobactam (Sod 4.5 gm/ Sodium Chloride) 100 mls @ 200 mls/hr IV ONETIME ONE Stop: 01/07/20 06:29 Last Admin: 01/07/20 07:38 Dose: 200 mls/hr Sodium Chloride (Normal Saline) 10 ml IV ASDIRECTED PRN PRN Reason: IV Use Last Admin: 01/06/20 15:10 Dose: 10 ml
== END 2020-01-08 17:04 | disposition home or self-care (01) ==
LOC: MW.ED 14:42 → MW.MS 15:42
PROVIDERS: ADMIT Internal Medicine; ATTEND Internal Medicine
DX: M62.82 Rhabdomyolysis (principal); S20.369A Insect bite (nonvenomous) of unspecified front wall of thorax, initial encounter; E86.0 Dehydration; R74.8 Abnormal levels of other serum enzymes; E87.1 Hypo-osmolality and hyponatremia; R74.0 Nonspecific elevation of levels of transaminase and lactic acid dehydrogenase [LDH]; D70.9 Neutropenia, unspecified; D72.819 Decreased white blood cell count, unspecified; D69.6 Thrombocytopenia, unspecified; R35.8 Other polyuria; R50.81 Fever presenting with conditions classified elsewhere; T67.5XXA Heat exhaustion, unspecified, initial encounter; Z79.899 Other long term (current) drug therapy; Z87.891 Personal history of nicotine dependence; W57.XXXA Bitten or stung by nonvenomous insect and other nonvenomous arthropods, initial encounter
CPT/HCPCS: 36415; 71045; 80048; 80053; 80202; 80305; 81003; 82550; 83036; 83605; 83735; 85025; 86757; 87040; 87635; 87804; A9270; J1644; J2543; J3370; J7030; J7050; J7120; 96360; 99284; 99285-25; U0002